=== PATIENT | male | born 1950 | race Caucasian/White ===

== ENCOUNTER → 2020-08-23 | Day surgery (SDC) | payer MEDICARE, BC ==
[2020-08-14 10:50] LABS: EOSINOPHILS % (AUTO) 4.3 % (0.0-3.0); HEMATOCRIT 36.9 % (42.0-52.0); HEMOGLOBIN 12.2 G/DL (14.2-18.0); LYMPHOCYTES % (AUTO) 31.8 % (20.0-45.0); MEAN CORPUSCULAR VOLUME 99 FL (80-99); MONOCYTES % (AUTO) 10.6 % (1.0-10.0); NEUTROPHILS % (AUTO) 52.3 % (45.0-75.0); PLATELET COUNT 249 K/UL (150-450); RED BLOOD COUNT 3.72 M/UL (4.70-6.10); RED CELL DISTRIBUTION WIDTH 15.2 % (11.6-14.8); WHITE BLOOD COUNT 8.3 K/UL (4.8-10.8)
[2020-08-14 11:02] LABS: ALANINE AMINOTRANSFERASE 50 U/L (12-78); ALBUMIN 3.3 G/DL (3.4-5.0); ALBUMIN/GLOBULIN RATIO 0.7 (1.0-2.7); ALKALINE PHOSPHATASE 65 U/L (46-116); ANION GAP 8 mmol/L (5-15); ASPARTATE AMINO TRANSFERASE 37 U/L (15-37); BILIRUBIN,TOTAL 0.8 MG/DL (0.2-1.0); BLOOD UREA NITROGEN 39 mg/dL (7-18); CALCIUM 9.3 MG/DL (8.5-10.1); CARBON DIOXIDE 31 MMOL/L (21-32); CHLORIDE 99 MMOL/L (98-107); CREATININE 5.2 MG/DL (0.55-1.30); POTASSIUM 5.1 MMOL/L (3.5-5.1); SODIUM 138 MMOL/L (136-145)
[2020-08-14 11:14] LABS: % IRON SATURATION 39 % (15-50); IRON 89 ug/dL (50-175); TOTAL IRON BINDING CAPACITY 228 ug/dL (250-450)
[~2020-08-23] VITALS: Ht 170.2 cm; Wt 78.0 kg
[2020-08-23] VITALS (8 sets, daily range): BP systolic 94–127; BP diastolic 65–76
[~2020-08-23] MED LIST: B COMPLEX1 EACH ORAL; COZAAR50 MG ORAL; FLOMAX0.4 MG ORAL; FOLIC ACID1 MG ORAL; GLUCOTROL10 MG ORAL; LR 1000ml ONE; Lidocaine 1% MPF 10mg/ml 5ml ONE; NS Irrig 1000ml ONE; PLAVIX75 MG ORAL; Sterile Water Irrig 1000ml IRRIG ONE; TRULICITY1.5 MG/0.5 SQ; ZOCOR20 MG ORAL
--- NOTE | 2020-08-23 10:39 | Short Stay Surgery H&P ---
History of Present Illness History of Present Illness Chief Complaint See H&P HPI Darrin Hunter is a 69 year old male who was admitted on for Blood In [facility] [place] Patient History Allergies: Coded Allergies: No Known Allergies (Unverified , 08/20/20) Medication History Scheduled Clopidogrel Bisulfate* (Plavix*), 75 MG ORAL DAILY, (Reported) Dulaglutide (Trulicity), 1.5 MG SQ ONCE A WEEK, (Reported) Folic Acid* (Folic Acid*), 1 MG ORAL DAILY, (Reported) Glipizide* (Glucotrol*), 10 MG ORAL DAILY, (Reported) Losartan Potassium* (Cozaar*), 50 MG ORAL DAILY, (Reported) Simvastatin (Zocor), 20 MG ORAL BEDTIME, (Reported) Tamsulosin HCl (Flomax), 0.4 MG ORAL DAILY, (Reported) Vitamin B Complex (B Complex), 1 TAB ORAL DAILY, (Reported) Physical Exam Vital Signs Last Vital Signs Date Time Temp Pulse Resp B/P (MAP) Pulse Ox O2 Delivery O2 Flow Rate FiO2 08/23/20 10:32 Room Air 08/23/20 10:26 97.4 83 18 127/76 97 Plan Attestation Are the patient's medical conditions optimized for surgery? Mary nAn Martines MD Aug 23, 2020 10:39
--- NOTE | 2020-08-23 10:41 | Pre-Procedure Note/Attestation ---
Pre-Procedure Note/Attestation Complete Prior to Procedure Planned Procedure: not applicable Procedure Narrative: colonoscopy Indications for Procedure Pre-Operative Diagnosis: BRBPR Attestation I attest that I discussed the nature of the procedure; its benefits; risks and complications; and alternatives (and the risks and benefits of such alternatives), prior to the procedure, with the patient (or the patient's legal denial management representative). I attest that, if there was a reasonable possibility of needing a blood transfu kojo, the patient (or the patient's legal denial management representative) was given the [facility] standardized written summary, pursuant to the [place] Blood Safety Act ([place] Health and Safety Code # 1645, as amended). I attest that I re-evaluated the patient just prior to the surgery and that there has been no change in the patient's H&P, except as documented below: Mary Ann Martines MD Aug 23, 2020 10:41
--- NOTE | 2020-08-23 11:12 | Endoscopy Procedure Note ---
Endoscopy Procedure Note General Indication for Procedure: BRB Procedures Performed: colonoscopy Operative Findings/Diagnosis: Dim distal Asc polyp-Bx, tics, rhoid Specimen: yes Pt Tolerated Procedure Well: Yes Estimated Blood Loss: none Anesthesia Anesthesiologist: LINDA Anesthesia: moderate sedation Medications Medication Given: see anesthesia record Inserted Devices Implant(s) used?: No GI Core Measures 50 yrs or older w/o bx or poly: Not Applicable 10yrs. F/U recommended: Not Applicable Mary Ann Martines MD Aug 23, 2020 11:12
--- NOTE | 2020-08-23 11:13 | Brief Operative Note ---
Immediate Post Operative Note Operative Note Chief Complaint: BRB Pre-op Diagnosis: BRBPR Procedure: Colon Post-op Diagnosis: polyp, tics , rhoid Surgeon: stacy Specimen: yes Complications: none Condition: stable Fluids: per anesthesia Implant(s) used?: No Mary Ann Martines MD Aug 23, 2020 11:13
--- NOTE | 2020-08-23 11:16 | Immediate Post-Op Evaluation ---
Immediate Post-Op Evalulation Immediate Post-Op Evalulation Procedure: colonoscopy Date of Evaluation: Aug 23, 2020 Time of Evaluation: 11:16 IV Fluids: 300 Blood Pressure Systolic: 96 Blood Pressure Diastolic: 50 Pulse Rate: 82 Respiratory Rate: 14 O2 Sat by Pulse Oximetry: 98 Temperature (Fahrenheit): 97.3 Nausea: No Vomiting: No Complications none Patient Status: awake, reacts, patent Hydration Status: adequate Drug: none Monae Kendrick CRNA Aug 23, 2020 11:16
--- NOTE | 2020-08-23 11:18 | Anethesia Preoperative Eval ---
Anesthesia Pre-op PMH/ROS General Date of Evaluation: Aug 23, 2020 Time of Evaluation: 10:25 Anesthesiologist: nicolas ASA Score: ASA 3 Mallampati Score Class I : Soft palate, uvula, fauces, pillars visible Class II: Soft palate, uvula, fauces visible Class III: Soft palate, base of uvula visible Class IV: Only hard plate visible Mallampati Classification: Class III Surgeon: promise Diagnosis: blood in stool Surgical Procedure: colonoscopy Anesthesia History: none Family History: no anesthesia problems Allergies: Coded Allergies: No Known Allergies (Unverified , 08/20/20) Medications: see eMAR Patient NPO?: Yes NPO Date: Aug 23, 2020 NPO Time: 00:01 Past Medical History Cardiovascular: Reports: HTN, CAD; Denies: OK, valve dz, arrhythmia, other Pulmonary: Denies: asthma, COPD, EYAL, other Gastrointestinal/Genitourinary: Reports: GERD, ESRD Endocrine: Denies: DM, hypothyroidism, steroids, other HEENT: Denies: cataract (L), cataract (R), glaucoma, [place] (L), [place] (R), other Hematology/Immune: Reports: anemia Musculoskeletal/Integumentary: Denies: OA, RA, DJD, DDD, edema, other Other: obesity PSxH Narrative: fistula Anesthesia Pre-op Phys. Exam Physician Exam Last Vital Signs Date Time Temp Pulse Resp B/P (MAP) Pulse Ox O2 Delivery O2 Flow Rate FiO2 08/23/20 10:32 Room Air 08/23/20 10:26 97.4 83 18 127/76 97 Constitutional: NAD Neurologic: CN 2-12 intact Cardiovascular: RRR Respiratory: CTA Gastrointestinal: S/NT/ND Airway Exam Mallampati Classification 2 Mallampati Score: Class II MO: full ROM: full Dentures: no upper, no lower Anesthesia Pre-op A/P Studies Pre-op Studies: EKG - sr Risk Assessment & Plan Assessment: covid neg Plan: mac Status Change Before Surgery: No Pre-Antibiotics Drug: none Monae Kendrick CRNA Aug 23, 2020 11:18
--- NOTE | 2020-08-23 11:21 | 48 Hour Post Anesthesia Eval ---
Post Anesthesia Evaluation Procedure: colonoscopy Date of Evaluation: Aug 23, 2020 Time of Evaluation: 11:21 Blood Pressure Systolic: 104 0: 67 Pulse Rate: 79 Respiratory Rate: 14 O2 Sat by Pulse Oximetry: 98 Airway: patent Nausea: No Vomiting: No Hydration Status: adequate Cardiopulmonary Status: stable Mental Status/LOC: patient returned to baseline Follow-up Care/Observations: na Post-Anesthesia Complications: none Follow-up care needed: N/A Monae Kendrick CRNA Aug 23, 2020 11:21
--- NOTE | 2020-08-26 22:29 | Operative Note - Dictated ---
DATE OF OPERATION: 08/23/2020 PROCEDURE: Colonoscopy with biopsy. SURGEON: Mary Ann Martines M.D. ANESTHESIA: Please see the separate anesthesiologist notes for details. PRE-ENDOSCOPIC DIAGNOSIS: Hematochezia. POST-ENDOSCOPIC DIAGNOSES: 1. Diminutive distal ascending colon polyp, status post biopsy removal. 2. Normal terminal ileum for about 5 cm. 3. Mild sigmoid diverticulosis. 4. Mild internal hemorrhoids. 5. Large old external hemorrhoidal tags on external exam. DESCRIPTION OF PROCEDURE: The procedure, its risks, indications, alternatives, and possible complications were explained to the patient, and informed consent was obtained. The patient was then sedated in the left lateral decubitus position, and a rectal exam was done. The colonoscope was introduced into the rectum and advanced to 5 cm into the terminal ileum. The colonoscope was then gradually withdrawn, and the mucosa was examined carefully. The findings and procedures were as listed above. The retroflexed view of rectum was otherwise unremarkable. The colonoscope was removed. The patient was sent to recovery in good condition. COMPLICATIONS: None. RECOMMENDATIONS: 1. High-fiber diet. 2. Follow up biopsy results. 3. Outpatient followup. Mary Ann Martines M.D. DR: Sebastien JOB#: [id number] CC: Zita Naranjo M.D.
== END | disposition home or self-care (01) ==
LOC: GAS 09:53
DX: K63.5 Polyp of colon (principal); K57.90 Diverticulosis of intestine, part unspecified, without perforation or abscess without bleeding; K64.8 Other hemorrhoids; K64.4 Residual hemorrhoidal skin tags; Z79.82 Long term (current) use of aspirin; I25.10 Atherosclerotic heart disease of native coronary artery without angina pectoris; I12.0 Hypertensive chronic kidney disease with stage 5 chronic kidney disease or end stage renal disease; N18.6 End stage renal disease; E66.9 Obesity, unspecified; D64.9 Anemia, unspecified; K21.9 Gastro-esophageal reflux disease without esophagitis; D12.2 Benign neoplasm of ascending colon
CPT/HCPCS: 36415; 45380; 80053; 83540; 83550; 85025; 94003; J2704; J7120; U0004; 94150